=== PATIENT | male | born 1965 | race Caucasian/White ===

== ENCOUNTER 2017-11-03 19:38 | Emergency (ER) | payer OTHER ==
[~2017-11-03] VITALS: Ht 175.3 cm; Wt 111.3 kg
[~2017-11-03 19:38] MED LIST: ADVAIR HFA120 INHALA IH; BACLOFEN10 MG PO; FAMOTIDINE20 MG PO; KEFLEX500 MG PO; LEXAPRO10 MG PO; NOHOMEMEDS; PREDNISONE20 MG PO; SPIRIVA RESPIMAT4 GM IH; XANAX0.5 MG PO
[2017-11-03 20:59] LABS: CHLORIDE 104 mEq/L (99-109); HEMATOCRIT 61.7 % (38.0-50.0); HEMOGLOBIN 21.6 G/DL (12.5-16.6); MCH 33.1 PG (29.0-34.0); MCV 94.6 FL (86-99); PLATELET COUNT 177 K/uL (156-360); POTASSIUM 4.4 mEq/L (3.7-5.4); RBC DIS.WIDTH-CV 16.2 % (11.8-14.6); RBC DIS.WIDTH-SD 54.3 % (39-53); RED BLOOD COUNT 6.52 M/uL (4.00-5.50); SODIUM 136 mEq/L (136-147); WHITE BLOOD COUNT 12.2 K/uL (4.1-10.2)
[2017-11-03 21:02] LABS: GLUCOSE 102 mg/dL (70-99); TOTAL PROTEIN 7.7 g/dL (6.4-8.3)
[2017-11-03 21:04] LABS: TOTAL BILIRUBIN 0.4 mg/dL (0.0-1.0)
[2017-11-03 21:05] LABS: ALKALINE PHOSPHATASE 77 IU/L (3-129); CREATININE 0.9 mg/dL (0.6-1.3); GFR ESTIMATE (CALCULATED) > 59 mL/min/ (58.99-99999)
[2017-11-03 21:06] LABS: UREA NITROGEN (BUN) 14 mg/dL (9-23)
[2017-11-03 21:07] LABS: AST (GOT) 14 IU/L (2-34)
[2017-11-03 21:08] LABS: ALT (GPT) 12 IU/L (3-49)
[2017-11-03] MEDS ORDERED: PREDNISONE20 MG PO (23:36)
[2017-11-03] MEDS ORDERED: LEVAQUIN750 MG PO (23:36)
[2017-11-03] MEDS ORDERED: PROVENTIL HFA6.7 GM IH (23:36)
[2017-11-04 00:07] VITALS: BP 122/75
== END 2017-11-04 00:18 | disposition home or self-care (01) ==
LOC: EME → EDBD 19:38 → EME 19:38
PROVIDERS: Emergency Medicine
DX: J18.9 Pneumonia, unspecified organism (principal); F32.9 Major depressive disorder, single episode, unspecified; F41.9 Anxiety disorder, unspecified; F17.200 Nicotine dependence, unspecified, uncomplicated
CPT/HCPCS: 80053; 83605; 85027; 87040; 94640; 99281; 99285; J1956; J7030; J7512

== ENCOUNTER → 2018-01-09 | Outpatient (CLI) | payer OTHER ==
[~2018-01-09] VITALS: Ht 175.3 cm; Wt 113.4 kg
[~2018-01-09] MED LIST changes: +LEVAQUIN750 MG PO; +PROVENTIL HFA6.7 GM IH; +SPIRIVA18 MCG IH; +VENTOLIN HFA18 GM IH
== END | disposition home or self-care (01) ==
LOC: AMB 13:23
DX: R91.8 Other nonspecific abnormal finding of lung field (principal); R06.02 Shortness of breath; R59.0 Localized enlarged lymph nodes; F17.200 Nicotine dependence, unspecified, uncomplicated; D75.1 Secondary polycythemia; R53.83 Other fatigue
CPT/HCPCS: 71045; 76001; 87070; 87116; 87205; 87206; 88108; 88305; J0461; J2250

== ENCOUNTER → 2018-05-15 | Outpatient (CLI) | payer OTHER ==
[~2018-05-15] MED LIST changes: +INHALER; +NICODERM CQ1 EAC2 TD; +SYMBICORT60 INHALAT IH
== END | disposition home or self-care (01) ==
LOC: CDC 15:23
DX: Z01.810 Encounter for preprocedural cardiovascular examination (principal); R91.8 Other nonspecific abnormal finding of lung field
CPT/HCPCS: 93000

== ENCOUNTER 2018-06-07 06:30 | Day surgery (SDC) | payer OTHER ==
[~2018-06-07] VITALS: Ht 175.3 cm; Wt 116.2 kg
[2018-06-07 07:16] VITALS: BP 115/72
[2018-06-07 07:17] LABS: INTER. NORMALIZED RATIO 0.9
[2018-06-07 07:19] LABS: PTT 28.6 SEC (25-37)
[2018-06-07] MEDS ORDERED: HYDROCODON-ACE1 EAC7 PO (10:44)
[2018-06-07] MEDS ORDERED: COLACE100 MG PO (10:44)
[2018-06-07 13:40] VITALS: BP 122/55
[2018-06-07 14:18] VITALS: BP 102/56
== END 2018-06-07 14:47 | disposition home or self-care (01) ==
LOC: SDC 06:30
PROVIDERS: Thoracic Surgery (Cardiothoracic Vascular Surgery)
PROC: 07B74ZX Excision of Thorax Lymphatic, Percutaneous Endoscopic Approach, Diagnostic (ICD-10-PCS; principal; 2018-06-07)
DX: R59.0 Localized enlarged lymph nodes (principal); R09.02 Hypoxemia; Z99.81 Dependence on supplemental oxygen; J44.9 Chronic obstructive pulmonary disease, unspecified; F41.9 Anxiety disorder, unspecified; D75.1 Secondary polycythemia; Z87.01 Personal history of pneumonia (recurrent)
CPT/HCPCS: 85610; 85730; 86850; 86900; 86901; 88305; 94640; J0330; J0690; J1100; J1885; J2250; J2405; J2710; J3010; J7643